=== PATIENT | male | born 1970 | race Caucasian/White ===

== ENCOUNTER 2016-07-29 16:15 | Inpatient (IN) | payer OTHER ==
[~2016-07-29] VITALS: Ht 198.1 cm; Wt 116.6 kg
[~2016-07-29 16:15] MED LIST: DAILY VALUE1 EACH PO; ZOCOR10 MG PO; ZOCOR20 MG PO
[2016-07-29 17:09] LABS: HEMATOCRIT 47.1 % (38.0-50.0); MCH 29.6 PG (29.0-34.0); MCHC 34.2 G/DL (30.0-36.0); MCV 86.6 FL (86-99); MEAN PLAT.VOLUME 9.7 uM^3 (9.0-12.4); PLATELET COUNT 265 K/uL (156-360); RBC DIS.WIDTH-CV 12.7 % (11.8-14.6); RBC DIS.WIDTH-SD 39.8 % (39-53); RED BLOOD COUNT 5.44 M/uL (4.00-5.50); WHITE BLOOD COUNT 6.3 K/uL (4.1-10.2)
[2016-07-29 17:22] LABS: CHLORIDE 105 mEq/L (99-109); POTASSIUM 3.8 mEq/L (3.7-5.4); SODIUM 141 mEq/L (136-147)
[2016-07-29 17:24] LABS: GLUCOSE 140 mg/dL (70-99)
[2016-07-29 17:25] LABS: ANION GAP 9 MEQ/L (2-14)
[2016-07-29 17:28] LABS: GFR ESTIMATE (CALCULATED) > 59 mL/min/
[2016-07-29 17:29] LABS: UREA NITROGEN (BUN) 15 mg/dL (9-23)
[2016-07-29 17:33] LABS: TROP-I INTERPRETATION POSITIVE; TROPONIN-I 1.24 ng/mL (0.0-0.30)
[2016-07-29 18:35] LABS: INTER. NORMALIZED RATIO 1.1; PROTHROMBIN TIME 10.7 (9.2-11.2); PTT 25.8 (25-32)
[2016-07-29 20:35] VITALS: BP 141/98
[2016-07-29 21:15] LABS: CREATINE KINASE 141 IU/L (1-294); TOTAL CK 141 IU/L (1-294)
[2016-07-29 21:21] LABS: CK-MB 7.6 ng/mL (0.0-4.9)
[2016-07-29 21:38] LABS: HDL CHOLESTEROL 31 MG/DL (Desirable>=40); LDL CHOLESTEROL 82 mg/dL (Desirable<100); NON-HDL CHOLESTEROL 132 mg/dL (Desirable<160); TOTAL CHOLESTEROL 163 mg/dL (Desirable<200); TRIGLYCERIDES 251 MG/DL (Normal: <150)
[2016-07-29 23:52] VITALS: BP 120/60
[2016-07-30 01:19] LABS: TROPONIN-I 0.99 ng/mL (0.0-0.30)
[2016-07-30 01:20] LABS: TROP-I INTERPRETATION POSITIVE
[2016-07-30 04:03] LABS: HEMATOCRIT 44.7 % (38.0-50.0); MCH 30.1 PG (29.0-34.0); MCHC 34.5 G/DL (30.0-36.0); MCV 87.5 FL (86-99); PLATELET COUNT 237 K/uL (156-360); RBC DIS.WIDTH-CV 12.7 % (11.8-14.6); RBC DIS.WIDTH-SD 39.8 % (39-53); RED BLOOD COUNT 5.11 M/uL (4.00-5.50); WHITE BLOOD COUNT 5.2 K/uL (4.1-10.2)
[2016-07-30 04:15] VITALS: BP 111/56
[2016-07-30 04:15] LABS: CHLORIDE 110 mEq/L (99-109); POTASSIUM 3.9 mEq/L (3.7-5.4); SODIUM 141 mEq/L (136-147)
[2016-07-30 04:17] LABS: GLUCOSE 107 mg/dL (70-99)
[2016-07-30 04:18] LABS: ANION GAP 9 MEQ/L (2-14)
[2016-07-30 04:21] LABS: GFR ESTIMATE (CALCULATED) > 59 mL/min/
[2016-07-30 04:22] LABS: UREA NITROGEN (BUN) 14 mg/dL (9-23)
[2016-07-30 04:28] LABS: TROP-I INTERPRETATION POSITIVE; TROPONIN-I 0.77 ng/mL (0.0-0.30)
[2016-07-30 07:35] VITALS: BP 143/95
[2016-07-30 11:20] VITALS: BP 129/94
[2016-07-30 18:17] VITALS: BP 134/96
[2016-07-30] MEDS ORDERED: LOPRESSOR25 MG PO (18:17)
[2016-07-30 18:18] VITALS: BP 134/96
== END 2016-07-30 19:44 | disposition home or self-care (01) | DRG 948 ==
LOC: EME 16:15 → EDOF 18:23 → 4EAST 18:23
PROVIDERS: Family Medicine; Internal Medicine
PROC: B2111ZZ Fluoroscopy of Multiple Coronary Arteries using Low Osmolar Contrast (ICD-10-PCS; principal; 2016-07-30)
PROC: B2151ZZ Fluoroscopy of Left Heart using Low Osmolar Contrast (ICD-10-PCS; principal; 2016-07-30)
PROC: 4A023N7 Measurement of Cardiac Sampling and Pressure, Left Heart, Percutaneous Approach (ICD-10-PCS; principal; 2016-07-30)
DX: R79.89 Other specified abnormal findings of blood chemistry (principal); E78.5 Hyperlipidemia, unspecified; R73.9 Hyperglycemia, unspecified; G47.30 Sleep apnea, unspecified; N20.0 Calculus of kidney; M26.609 Unspecified temporomandibular joint disorder, unspecified side; Z89.412 Acquired absence of left great toe
CPT/HCPCS: 36415; 71020; 71275; 80048; 80053; 80061; 82550 91; 82553; 84484; 85025; 85027; 85610; 85730; 93005; 93306; 99281; 99285; C1750; C1769; C1887; J1644; J2250; J3010; J7030; J7040